=== PATIENT | male | born 1995 | race Caucasian/White ===

== ENCOUNTER 2018-12-14 22:06 | Inpatient (IN) | payer MEDICAID ==
[~2018-12-14] VITALS: Ht 182.9 cm; Wt 92.5 kg
[2018-12-14 22:30] VITALS: BP 124/81
[2018-12-14] MEDS ORDERED: GABA-534 PO (22:41)
--- NOTE | 2018-12-14 22:45 | NUR ---
[facility] hospitalist spoke to dr. panda for admitting orders.
[2018-12-14] MEDS ORDERED: IV 1/2NS 1000 ML 1,000 ML IV PRN (22:55)
[2018-12-14] MEDS ORDERED: Z GUARD REMEDY 2 OZ OINT TP PRN (23:00)
[2018-12-14] MEDS ORDERED: MORPHINE SULFATE INJ 2 MG/ML DISP.SYRIN IV PRN (23:00)
[2018-12-14] MEDS ORDERED: ONDANSETRON HCL/PF 4 MG/2 ML VIAL IVP PRN (23:00)
--- NOTE | 2018-12-14 23:00 | NUR ---
Receive pt from [facility] direct admit at 2211 via gurney with EMT. Pt a/o x 4, respirations even and unlabored. admit to medsurg unit. pt stated "feels better at this time". no nausea, vomiting, diarrhea. head to toe assessment is done skin is intact. kept comfortable. safety measures at all times. will cont to mtr.
[2018-12-14] MEDS: MORPHINE SULFATE INJ 2 MG/ML DISP.SYRIN IV PRN (23:28)
[2018-12-14] MEDS ORDERED: PIPERACILLIN /TAZOBACTAM 2.25 G VIAL IV ONE (23:59)
[2018-12-15] MEDS ORDERED: PIPERACILLIN /TAZOBACTAM 4.5 G in IV D5W 50 ML IV SCH ×2
[2018-12-15] MEDS ORDERED: PIPERACILLIN /TAZOBACTAM 4.5 G in IV D5W 50 ML IV ONE (00:30)
[2018-12-15 04:00] VITALS: BP 104/62
--- NOTE | 2018-12-15 06:25 | NUR ---
MS RN No significant changes throughout the shift. Pt slept well. No c/o of pain. needs attended and anticipated. kept clean, dry and comfortable. nursing care rendered. mother at bedside. safety measures at all times. will cont to mtr.
[2018-12-15 06:57] LABS: BASOPHILS % (AUTO) 0.2 % (0.0-2.0); EOSINOPHILS % (AUTO) 0.6 % (0.0-6.0); HEMATOCRIT 43 % (39-51); HEMOGLOBIN 14.7 g/dL (13.5-17.5); LYMPHOCYTES # (AUTO) 1.6 /CMM (0.8-4.8); LYMPHOCYTES % (AUTO) 20.9 % (20.0-44.0); MEAN CORPUSCULAR HGB CONC 34 g/dl (31.0-36.0); MEAN CORPUSCULAR VOLUME 92 fL (80-96); MONOCYTES # (AUTO) 0.7 /CMM (0.1-1.30); NEUTROPHILS # (AUTO) 5.2 /CMM (1.8-8.9); NEUTROPHILS % (AUTO) 69.3 % (43.0-81.0); PLATELET COUNT (AUTO) 204 /CMM (150-450); RED BLOOD CELL COUNT(AUTO) 4.63 MIL/uL (4.5-6.0); WHITE BLOOD COUNT (AUTO) 7.5 K/uL (4.3-11.0)
[2018-12-15 07:24] LABS: ALBUMIN 3.3 g/dL (3.4-5.0); BILIRUBIN,TOTAL 0.8 mg/dL (0.2-1.0); CALCIUM, SERUM 8.5 mg/dL (8.5-10.1); CREATININE 0.9 mg/dL (0.6-1.3); MAGNESIUM 2.2 mg/dL (1.8-2.4)
[2018-12-15] MEDS ORDERED: ALBU18HF2 IH (07:50)
[2018-12-15] MEDS ORDERED: HYDR-4384 PO (07:50)
[2018-12-15] MEDS ORDERED: ALBU2.5V38 IH (07:50)
[2018-12-15 08:00] VITALS: BP 100/42
[2018-12-15 08:03] VITALS: BP 100/42
--- NOTE | 2018-12-15 08:10 | NUR ---
patient picked up by Radiology staff for procedure. Zosyn will be administrated after patient come back to unit
[2018-12-15] MEDS ORDERED: DIATR MEGLU/DIATRIZOATE SODIUM 120 ML BOTTLE (GASTROGRAPHIN) ONE (09:04)
--- NOTE | 2018-12-15 10:20 | NUR ---
patient came back to unit . No distress noted
[2018-12-15] MEDS: PIPERACILLIN /TAZOBACTAM 3.375 G in IV D5W 100 ML IV SCH ×2 (10:22→16:21)
[2018-12-15] MEDS: MORPHINE SULFATE INJ 2 MG/ML DISP.SYRIN IV PRN (10:37)
--- NOTE | 2018-12-15 13:47 | NUR ---
per DNP Saad Sita start with clear liquids and advance to soft diet for dinner if tolerated
--- NOTE | 2018-12-15 14:30 | NUR ---
patient tolerated clear liquid diet well. Will continue to monitor
[2018-12-15 15:57] VITALS: BP 112/63
--- NOTE | 2018-12-15 18:30 | NUR ---
PATIENT CLEARED FOR D/C TO HOME BY MD. PATIENT ALERT AND ORIENTED X4.BREATHING EVEN AND UNLABORED ON ROOM AIR . NO DISTRESS NOTED, VS ARE STABLE, AFEBRILE AND DENIES PAIN. PATIENT TOLERATED SOFT FOOD DIET WELL, NO N/V/D REPORTED.D/C INSTRUCTIONS AND EDUCATION PROVIDED; PATIENT VERBALIZED UNDERSTANDING. SKIN INTACT. ALL NEEDS ATTENDED. IV LINE REMOVED , ID BEND WRIST REMOVED. VALUABLE FORM SIGHED AND ALL BELONGINGS WITH THE PATIENT INCLUDING CELL PHONE AND ROTARY CUTTER OPERATOR.PATIENT SAFELY TRANSPORTED TO [facility] ACCOMPANIED BY SUPERVISOR SANDBLASTER AND MOTHER.
== END 2018-12-15 18:30 | disposition home or self-care (01) | DRG 247 ==
LOC: TELE 22:06 → MED 12-15 09:55
PROVIDERS: ADMIT Internal Medicine; ATTEND Internal Medicine
DX: K56.51 Intestinal adhesions [bands], with partial obstruction (principal); K52.9 Noninfective gastroenteritis and colitis, unspecified; Z79.51 Long term (current) use of inhaled steroids; Z79.899 Other long term (current) drug therapy
CPT/HCPCS: 36415; 74250-TC; 80053-TC; 80061-TC; 83735-TC; 84100-TC; 85025-TC; 87081-TC; G0378; J2270; J2543; J3490; J7060; Q9963